=== PATIENT | female | born 1980 | race African-American/Black ===

== ENCOUNTER 2016-05-22 14:47 | Emergency (ER) | payer MEDICAID ==
[2016-05-22 14:47] VITALS: BMI 25.7
[2016-05-22] MEDS ORDERED: DIATRIZOATE MEGLMINE/SODIUM 30 ML BOTTLE PEG ONE (15:28)
--- NOTE | 2016-05-22 15:30 | EDPRACDOC ---
- General Information Chief Complaint: Gastrostomy Tube Replacement Stated Complaint: PEG TUBE PROBLEMS Time Seen by Provider: 05/22/16 15:23 Information Source: Emergency Services Professional Home Medications: Home Medications Acetaminophen [Q-Pap] 650 mg TUBE Q6H PRN 01/05/15 Albuterol/Ipratropium Neb [Duoneb] 3 ml NEB Q6H PRN 01/05/15 Diazepam 2 mg TUBE QHS 05/29/15 Metoprolol Tartrate 25 mg TUBE QID 05/29/15 Polyethylene Glycol 3350 [Miralax] 17 gm TUBE BID 05/29/15 Hydrocortisone [Anusol Hc] 25 mg VA BID PRN 07/21/15 Oxycodone HCl [Roxicodone] 5 mg TUBE Q6H PRN 07/21/15 Baclofen 10 mg TUBE TID 08/04/15 Omeprazole Susp 20mg/5ml 5 ml TUBE DAILY 08/04/15 Diazepam [Valium] 2 mg PO DAILY PRN 05/22/16 Ferrous Sulfate 5mg/20ml 5 ml TUBE QID 05/22/16 Ibrahim's Goo 1 gm TOP BID 05/22/16 Allergies/Adverse Reactions: Allergies Allergy/AdvReac Type Severity Reaction Status Date / Time amoxicillin Allergy Unknown Verified 08/04/15 15:17 - History of Present Illness Onset: today HPI: PATIENT PRESENTS FROM NURSING FACILITY WITH A DAMAGED G-TUBE. NO FEVER. NO N/V Patient Has a Chronic/Temporary: Reports: Gastrostomy Line/Tube Is: Nonfunctioning Associated Signs & Symptoms: Reports: None - Treatment Prior to ED Arrival Reported Medications/Treatment [facility] Treatment BLS ED Past Medical History - History Reviewed Yes Nurses notes reviewed and agree except as marked Travel Outside of [place] in the Last 3 Months?: No - Patient Medical History Neurological History: Reports: Cerebrovascular Accident, Seizures (abnormal EEG' s) Cardiac History: Reports: Hypertension Respiratory History: Reports: Aspiration Pneumonia, Pulmonary Embolism (October 2012 stop taking medications Apr 2013) GI/ History: Reports: Urinary Tract Infection, Gastroesophageal Reflux, Ulcer Psychological History: Reports: Anxiety. Denies: Substance Use Disorder Systemic History: Reports: Anemia Surgical History: Reports: Cholecystectomy, Other (TRACH, PEG (OTHER SURGERIES UNKN)) - Family Medical History Comment Only: Diabetes (pt unable to answer family hx) - Social Medical History Smoking Status: Current status unknown Social History: Denies: Substance Use Disorder EDM Review of Systems - Review of Systems ROS Unobtainable: Yes Review of systems cannot be obtained due to the patient's medical condition - Physical Exam Constitutional: No apparent distress, Alert (Awake), Other (PATIENT IS BEDBOUND WITH AN INABILITY TO RESPOND TO QUESTIONS OR VERBALIZE NEEDS. CANNOT FOLLOW COMMANDS) Oriented to: Unable to Test Last recorded Vital Signs: Oxygen Pulse Oxygen Saturation O2 Device Oxygen Flow Rate Fraction of Inspired Oxygen ( FIO2) - HEENT Head: Normal ( normocephalic) Eye Exam: Normal (PERRL, EOMI, Sclera white) Oropharynx: Normal (Pharynx:Moist without exudate,Gums-no swelling) Tympanic Membrane: Normal ENT EAC: Normal TMJ: Normal Nose: No Symptoms Reported (septum midline) Neck: Normal (FROM, trachea at midline) - Respiratory/Cardiovascular Respiratory: Normal - CTA (BBS clear to auscultation without adventitious sounds ) Cardiovascular: Normal (RRR without murmur, gallop or rub) - GI Auscultation: Normal (NABS) Palpation: Normal (Soft,No rebound or guarding, non distended) Tenderness: Non tender Toscano's Sign: Negative GI Comment: G-TUBE IN PLACE. NO ERYTHEMA. NO DISCHARGE. BROKEN PORT ON G-TUBE - Musculoskeletal Back: Normal (Non-Tender) Extremities: Other (CONTRACTED EXTREMITIES) - Integumentary Skin: Normal, Warm, Dry Lymphatics: Normal (no adenopathy) - Neurologic Memory Impaired: Unable to Test Motor Function: Unable to Test Cranial Nerve: Unable to Test Cerebellar: Unable to Test ED Procedures - Feeding Tube Indications: Tube is nonfunctioning Placement confirmed by: Xray Feeding Tube Notes: 22 FR G-TUBE REPLACED WITH A 24FR Decision Time to Discharge: 17:35 - Departure Yes I personally saw and evaluated the patient. Disposition: Home Condition: Good Final Diagnosis: Gastrojejunostomy tube dislodgement Instructions: Tube Feeding (GEN) Education/Counseling Given To: Patient Education/Counseling Given Regarding: Diagnosis, Treatment, Prognosis, Follow Up Referrals: Rodrigo Fuentes MD [Primary Care Provider] - One Week Prescriptions: No Action Albuterol/Ipratropium Neb [Duoneb] 3 ml NEB Q6H PRN PRN Reason: Shortness Of Breath Acetaminophen [Q-Pap] 650 mg TUBE Q6H PRN PRN Reason: Fever/Pain No Po/Ineffective Polyethylene Glycol 3350 [Miralax] 17 gm TUBE BID Diazepam 2 mg TUBE QHS Metoprolol Tartrate 25 mg TUBE QID Oxycodone HCl [Roxicodone] 5 mg TUBE Q6H PRN PRN Reason: Pain Hydrocortisone [Anusol Hc] 25 mg VA BID PRN PRN Reason: HEMMORHOID Omeprazole Susp 20mg/5ml 5 ml TUBE DAILY Baclofen 10 mg TUBE TID Ibrahim's Goo 1 gm TOP BID Ferrous Sulfate 5mg/20ml 5 ml TUBE QID Diazepam [Valium] 2 mg PO DAILY PRN PRN Reason: Anxiety
[2016-05-22] MEDS ORDERED: 2-OCTYL CYANOACRYLATE PEN TOP ONE (16:19)
--- NOTE | 2016-05-22 17:31 | DIRPT ---
CLINICAL DATA: G-tube placement. EXAM: ABDOMEN - 1 VIEW COMPARISON: 08/04/2015. FINDINGS: Portable supine view the abdomen was taken after administration of contrast material through the patient's G-tube. Contrast material opacifies the gastric lumen without evidence for free spill of contrast into the peritoneal cavity. There is a collection in the left upper quadrant it is not in the stomach but is probably related to colonic contents. IMPRESSION: Contrast material opacifies the gastric lumen suggesting G-tube tip is in the stomach. Radiodensity in the left upper quadrant is indeterminate. This may be related to colonic contents. Electronically Signed By: Gerry Ford M.D. On: 05/22/2016 17:29
[2016-05-22 18:43] VITALS: BP 133/85; PULSE 84
== END 2016-05-22 18:36 ==
LOC: ED 14:47
DX: K94.29 Other complications of gastrostomy (principal)
CPT/HCPCS: 43760; 74000; 99283; J3490